=== PATIENT | female | born 1940 | race Caucasian/White ===

== ENCOUNTER 2016-09-20 17:45 | Inpatient (IN) | payer MEDICARE, BC ==
[2016-09-19 22:47] LABS: BASOPHILS 0.6 %; BASOPHILS ABSOLUTE 0.04 10/3/uL (0.0-0.16); EOSINOPHILS 5.9 %; HEMATOCRIT 45.7 % (36.0-48.0); HEMOGLOBIN 14.8 g/dL (12.0-16.0); IMMATURE GRANULOCYTES 0.1 %; IMMATURE GRANULOCYTES ABSOLUTE 0.01 10/3/uL (0.0-0.11); LYMPHOCYTES 21.2 %; LYMPHOCYTES ABSOLUTE 1.44 10/3/uL (0.67-4.30); MEAN CORPUS HGB CONC 32.4 g/dL (32.0-36.0); MEAN CORPUSCULAR HEMOGLOB 30.3 pg (26.0-34.0); MEAN CORPUSCULAR VOLUME 93.6 fL (80-100); MEAN PLATELET VOLUME 12.3 fL (9.2-13.0); MONOCYTES 8.5 %; MONOCYTES ABSOLUTE 0.58 10/3/uL (0.21-1.20); NEUTROPHILS 63.7 %; NEUTROPHILS ABSOLUTE 4.32 10/3/uL (2.02-8.40); PLATELET COUNT 214 10/3/uL (150-400); RBC DISTRIBUTION WIDTH 14.2 % (12.0-16.0); RED CELL COUNT 4.88 10/6/uL (4.0-5.6); WHITE BLOOD CELLS 6.8 10/3/uL (4.5-10.5)
[2016-09-19 22:48] LABS: MANUAL DIFF NO %
[2016-09-19 23:16] LABS: A/G RATIO 1.4 (0.7-1.9); ALBUMIN 4.3 G/DL (3.5-5.0); ALKALINE PHOSPHATASE 81 U/L (45-117); BUN (BLOOD UREA NITROGEN) 15 MG/DL (6-23); CHLORIDE, SERUM 103 MMOL/L (96-112); CO2 (CARBON DIOXIDE) 30 MMOL/L (24-34); CREATININE 0.64 MG/DL (0.55-1.02); FERRITIN 20 NG/ML (8-252); GFR AFRICAN AMERICAN 101 ML/MIN (>=60); GFR NON AFRICAN AMERICAN 87 ML/MIN (>=60); IRON, SERUM 73 MCG/DL (35-150); SGOT(AST) 21 U/L (5-40); SGPT(ALT) 25 U/L (5-65); SODIUM, SERUM 142 MMOL/L (135-148); TOTAL BILIRUBIN 0.6 MG/DL (0-1.2); TOTAL PROTEIN 7.3 G/DL (6.0-8.5)
[2016-09-19 23:18] LABS: GLUCOSE, SERUM 93 MG/DL (60-99); POTASSIUM, SERUM 4.7 MMOL/L (3.5-5.3)
--- NOTE | ~2016-09-20 | CN ---
Consultation Report [facility] [address] [place] [place]. [address] NAME: CAROL MILLS : 42 STATUS : ADM IN PAT#: [id number] AGE: 76 ADM/REG DATE : 09/21/16 MR#: [id number] REPORT SERV DATE: 09/21/16 DICTATED BY: REINIER PEREZ DATE: 09/21/16 REPORT STATUS : Draft TRANSCRIBED BY: MODL DATE: 09/21/16 CONSULTATION DATE OF CONSULTATION: HISTORY: This is a 76-year-old woman who I am asked to evaluate for hematochezia. This woman is known to me from prior evaluation. She has a history of significant anxiety and IBS with constipation. She has had colonoscopy in 2013 with a poor bowel prep and most recently in March of 2015 when she had upper and lower endoscopy for some hematochezia. Findings at that time included antral gastritis with bile reflux, internal hemorrhoids, pancolonic diverticulosis, fair bowel prep, technically difficult study and a little bit of blood on the left side of the colon. She has had some intermittent constipation for which she used probiotic. Yesterday, she passed some red blood and maroon-colored blood with clots several times in the morning. She phoned Dr. Alvarez who directed her to go to the emergency room. Her hemoglobin was normal 14.8 two days ago. She presented with hemoglobin 13.4, and it was 12.2 this morning. It remains normal at 12.8. She did not require transfusion. She was given a bowel prep orders by the hospitalist who admitted her but I was not notified that she was given a bowel prep. She said the first stool was somewhat bloody but after this, the stools cleared although she is still passing a little bit of brown stool. PAST MEDICAL HISTORY: 1. GERD. 2. Lactose intolerance. 3. Mild left-sided diverticular bleed in 2014. 4. Hypertension. 5. Asthma. 6. Migraine headaches. 7. Anxiety/panic attacks. PAST SURGICAL HISTORY: No abdominal surgery. MEDICATIONS: Albuterol inhaler, Xanax, Artificial Tears, biotin, Symbicort, vitamin D3, Estratest, Efudex, Flonase, Levsin as needed, acidophilus, lutein, Theragran, multivitamin, Prilosec 20 mg daily, Deltasone, Imitrex, Premarin, and Diovan. ALLERGIES: NO KNOWN DRUG ALLERGIES. FAMILY HISTORY: No GI malignancy. SOCIAL HISTORY: She is , and her is at bedside. She does not smoke. She occasionally drinks beer. Consultation Report [facility] [id number] [place]. [address] NAME: CAROL MILLS : 42 STATUS : ADM IN PAT#: [id number] AGE: 76 ADM/REG DATE : 09/21/16 MR#: [id number] REPORT SERV DATE: 09/21/16 DICTATED BY: REINIER PEREZ DATE: 09/21/16 REPORT STATUS : Draft TRANSCRIBED BY: ARLEEN DATE: 09/21/16 REVIEW OF SYSTEMS: Otherwise unremarkable for constitutional, endocrine, neurologic, psychiatric, ocular, ENT, pulmonary, cardiovascular, GI, , or rheumatologic symptoms except for as noted above. PHYSICAL EXAMINATION: GENERAL: She is a very anxious, elderly white female, resting comfortably in bed. VITAL SIGNS: Hemodynamically stable. SKIN: Warm and dry. NODES: No adenopathy. LUNGS: Clear. CARDIOVASCULAR: Regular rate and rhythm without audible gallop or murmur. ABDOMEN: Soft and nontender without mass or organomegaly. EXTREMITIES: No edema. LABORATORY DATA: Hemoglobin is normal at 12.8, white count 9.1, and platelet count normal. Sodium 144, potassium 3.3, BUN 10, creatinine 0.39. Liver enzymes normal. Noncontrast CT scan shows constipation and diverticulosis without any inflammatory changes. IMPRESSION: 1. Hematochezia. This very well could be outlet bleeding. If it is a colonic source such as diverticular bleed, it indeed is very mild and self-limited episode. 2. Irritable bowel syndrome with constipation. 3. Lactose intolerance. RECOMMENDATIONS: As the hospitalist has already given her bowel prep, we will go ahead with endoscopic examination. GIGI/ARLEEN Reinier Perez M.D. / [id number] CC: Nestor Murphy Jr, MD Richard Forrest Sowell, M.D.
--- NOTE | ~2016-09-20 | DS ---
Discharge Summary [facility] [address] [place]. [address] NAME: CAROL MILLS : 42 STATUS : DIS IN PAT#: [id number] AGE: 76 ADM/REG DATE : 09/21/16 MR#: [id number] REPORT SERV DATE: 09/24/16 DICTATED BY: SHIRLEY TAYLOR DATE: 09/22/16 REPORT STATUS : Draft TRANSCRIBED BY: MODL DATE: 09/22/16 ADMISSION DATE: 09/20/2016 DISCHARGE DATE: 09/22/2016 REASON FOR ADMISSION: Bright red blood per rectum. HISTORY OF PRESENT ILLNESS: Please refer Dr. Maciej Etienne's history and physical dated 09/21/2014 for complete details regarding the patient's admission. In brief, the patient was admitted to the Hospitalist Service for an acute lower GI bleed secondary to hematochezia. HOSPITAL COURSE: The patient had an uncomplicated hospital course. The patient was handed over care to Dr. Murphy who saw her in the CDU, and then, I assumed care of this patient on the day of discharge. The patient presented with a diverticular bleed. Dr. Perez who has done previous colonoscopies was consulted and performed a colonoscopy on 09/21/2016, which showed nonbleeding internal hemorrhoids. There was moderate diverticulosis in the sigmoid colon and in the descending colon. There was evidence of past bleeding from the diverticular opening. There was also mild diverticulosis in the transverse colon and in the ascending colon. There was no evidence of diverticular bleeding. The left-sided diverticular bleed has ceased. He also noted some irritable bowel syndrome and recommended a full-liquid diet to advance to soft in the morning. The patient's hemoglobin had remained stable throughout the hospitalization and did not require blood transfusion. She is tolerating foods and did not have any abdominal pain. Of note, she did have a bloody bowel movement on the day prior to discharge, but again, her hemoglobin has been stable and likely secondary to the residual bleeding. The patient will be discharged today in a stable condition. DISCHARGE DIAGNOSES: Hematochezia secondary to diverticular bleed, now resolved; migraine; reflux; asthma; severe anxiety; and hypertension. PROCEDURES: Include consultation with Dr. Perez, colonoscopy. DISCHARGE MEDICATIONS: Same as her home medications, no adjustments including Xanax 0.125 mg twice a day along with p.r.n. Efudex cream, Flonase, Prilosec 20 mg daily, valsartan 80 mg twice a day, albuterol, Symbicort 160/4.5 two puffs twice a day, estrogen daily, Levsin 0.125 mg p.r.n., vitamin D3, Imitrex 100 mg p.r.n. migraine, prednisone 20 mg p.r.n. anxiety attack, Premarin cream, lactobacillus, multivitamin, Lutein, Biotin, and Artificial Tears. FOLLOWUP: The patient will follow up with Dr. Alvarez as scheduled. I spent over 30 minutes in discharge planning and coordination of care on Mrs. Mills. JOSE MIGUEL/ARLEEN Discharge Summary [address] [address] NAME: CAROL MILLS : 42 STATUS : DIS IN PAT#: [id number] AGE: 76 ADM/REG DATE : 09/21/16 MR#: [id number] REPORT SERV DATE: 09/24/16 DICTATED BY: SHIRLEY TAYLOR DATE: 09/22/16 REPORT STATUS : Draft TRANSCRIBED BY: ARLEEN DATE: 09/22/16 Shirley Taylor MD / [id number]
--- NOTE | ~2016-09-20 | HP ---
History And Physical [facility] [address] [place]. [address] NAME: CAROL MILLS : 42 STATUS : ADM Mary PAT#: [id number] AGE: 76 ADM/REG DATE : 09/20/16 MR#: [id number] REPORT SERV DATE: 09/21/16 DICTATED BY: MACIEJ HEALY DATE: 09/20/16 REPORT STATUS : Draft TRANSCRIBED BY: MODL DATE: 09/20/16 DATE OF ADMISSION: 09/20/2016 CHIEF COMPLAINT: Bright red blood per rectum. HISTORY OF PRESENT ILLNESS: This is a 76-year-old female with a history of diverticulitis in the past with GI bleeding, hypertension, and anxiety disorder, presents to the emergency room at [facility] with the above-mentioned complaints. History is obtained from the patient, her who is at bedside, and reviewing data available on the [employer]ate[employer] system as well. According to the patient and her , she was fine this morning when she got up and during the course of the day, she had to go to the bathroom for a bowel movement. Unfortunately, she saw bright red blood and she says there was a lot. Since then, she had been going about every 15 minutes, sometimes even [id number]. By evening, she was exhausted, she felt a little weak and dizzy, called her primary care physician, Dr. Ho Alvarez, who asked her to proceed to the emergency room right away. In the emergency room, her hemoglobin and hematocrit levels were stable. CT scan of the abdomen and pelvis revealed several diverticula, but no diverticulitis. ER providers called Gastroenterology and spoke to Dr. Hernández, who advised admission under Hospitalist Service and they would see her in the morning. At the time of my evaluation, she denied any chest pain, palpitations, or orthopnea. She had no cough, hemoptysis, night sweats, or weight loss. She has not had any recent falls or loss of consciousness. No history of fevers or chills. Did not have any nausea or vomiting. She denied any abdominal cramping or pain. She denied any hematemesis or hematuria. No other history of recent travel or exposure. PAST MEDICAL HISTORY: Significant for history of diverticulitis with GI bleed in the past, history of gastroesophageal reflux disease, essential hypertension, asthma, migraine headaches, and anxiety disorder. SOCIAL HISTORY: She does not smoke, but drinks a beer on a daily basis before her dinner. She denied any recreational drug use. 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 FAMILY HISTORY: Noncontributory. MEDICATIONS AT HOME: Reviewed by me in the chart today and reordered by me. REVIEW OF SYSTEMS: As in history of present illness. All other systems were reviewed in detail and are quite unremarkable. PHYSICAL EXAMINATION: History And Physical [address] [address] NAME: CAROL MILLS : 42 STATUS : ADM Mary PAT#: [id number] AGE: 76 ADM/REG DATE : 09/20/16 MR#: [id number] REPORT SERV DATE: 09/21/16 DICTATED BY: MACIEJ HEALY DATE: 09/20/16 REPORT STATUS : Draft TRANSCRIBED BY: ARLEEN DATE: 09/20/16 GENERAL: This is a pleasant 76-year-old, not in any acute distress. HEENT: Her head is atraumatic and normocephalic. She is alert, awake, oriented to time, place, and person. Pupils are equal, reacting to light and accommodating. External ocular muscles are intact. Membranes are moist and pink. Sclerae are nonicteric. NECK: Supple with no jugular venous distention, lymphadenopathy, or thyromegaly. LUNGS: Clear to auscultation with no wheezes, rubs, or crackles. HEART: Sounds were regular with no murmurs, rubs, or gallops. ABDOMEN: Soft, nontender. Bowel sounds are present. EXTREMITIES: Showed no cyanosis, clubbing, or edema. NEUROLOGIC: Grossly intact. No focal sensory or motor deficits. Higher functions appeared intact. Gait was not examined. VITAL SIGNS: Her temperature was 98.7, pulse 89, respirations 19 a minute, blood pressure was 137/92, and oxygen saturations were 97%, breathing 2 L of oxygen via nasal cannula. LABORATORY DATA: Reviewed on the [employer] system showed normal CMP with a blood glucose of 138. CBC was essentially normal as well. White blood cell count was 6400, hemoglobin was 13.4, hematocrit 40, and platelet count was 193,000. Urinalysis was not performed today. Films of the CT scan of her abdomen and pelvis were reviewed by me on the PACS today and interpreted by me. Official radiology report was also reviewed. There are several diverticula seen, but no acute diverticulitis. There is constipation. Please see the report for details. A 12-lead EKG done in the emergency room was reviewed and interpreted by me. There is normal sinus rhythm with a rate of 73 per minute without any acute-ST elevations or depressions. IMPRESSION: 1. Acute lower gastrointestinal bleeding. 2. History of diverticulitis and gastrointestinal bleed. 3. Gastroesophageal reflux disease. 4. Uncontrolled hypertension. 5. Asthma. 6. Migraine headaches. 7. Anxiety disorder. PLAN: We will admit Ms. Mills to the Hospitalist Service with telemetry for a 24-hour observation period. We will keep her n.p.o. for now. Consult Dr. Reinier Perez, her rock worker, to see her in the morning. We will follow GI bleed order sets, follow hemoglobin and hematocrit, type and cross and transfuse if necessary. We will also place her on bronchodilators on an as-needed basis for her asthma. For blood pressure control, will be established with hydralazine intravenously on an as-needed basis and continuing her home medications. We will continue all other medications and treatments at this time. Start her on bowel prep as her colon shows a lot of retained feces. We will also place her on SCDs for DVT prophylaxis while here. Further recommendations will follow after Dr. Perez has had a chance to see her in the morning. I have discussed the above plan with the patient and her . Questions were answered and they are agreeable to the above recommendations. Hospitalist Service will be following her during her stay here. History And Physical [address] [address] NAME: CAROL MILLS : 42 STATUS : ADM Mary PAT#: [id number] AGE: 76 ADM/REG DATE : 09/20/16 MR#: [id number] REPORT SERV DATE: 09/21/16 DICTATED BY: MACIEJ HEALY DATE: 09/20/16 REPORT STATUS : Draft TRANSCRIBED BY: ARLEEN DATE: 09/20/16 /ARLEEN Maciej Healy M.D. / [id number] CC: Nestor Murphy Jr, MD Richard Forrest Sowell, M.D.
--- NOTE | ~2016-09-20 | EGD ---
EGD REPORT [facility] [address] [place]. [address] NAME: CAROL MILLS : 42 STATUS : ADM Mary PAT#: [id number] AGE: 76 ADM/REG DATE : 09/20/16 MR#: [id number] REPORT SERV DATE: 09/21/16 DICTATED BY: ANNIE FINK DATE: 09/21/16 REPORT STATUS : Draft TRANSCRIBED BY: [facility] DATE: 09/21/16 Endoscopy Center Patient Name: Carol Mills Date of : 1940 Attending MD: ANNIE FINK MD Procedure Date No Time: 09/21/2016 Procedure: Colonoscopy Indications: Hematochezia Referring MD: ROSA MARIA LAYTON MD Medicines: Propofol per Anesthesia Complications: No immediate complications. Estimated blood loss: None. Procedure: Pre-Anesthesia Assessment: - After reviewing the risks and benefits, the patient was deemed in satisfactory condition to undergo the procedure. - Prior to the procedure, a History and Physical was performed, and patient medications and allergies were reviewed. The patient's tolerance of previous anesthesia was also reviewed. The risks and benefits of the procedure and the sedation options and risks were discussed with the patient. All questions were answered, and informed consent was obtained. Prior Anticoagulants: The patient has taken no previous anticoagulant or antiplatelet agents. ASA Grade Assessment: II - A patient with mild systemic disease. After reviewing the risks and benefits, the patient was deemed in satisfactory condition to undergo the procedure. After I obtained informed consent, the scope was passed under direct vision. Throughout the procedure, the patient's blood pressure, pulse, and oxygen saturations were monitored continuously. The PCF [id number] was introduced through the anus and advanced to the cecum, identified by appendiceal orifice and ileocecal valve. The colonoscopy was somewhat difficult due to restricted mobility of the colon, significant looping and a tortuous colon. Successful completion of the procedure was aided by straightening and shortening the scope to obtain bowel loop reduction. The ileocecal valve and appendiceal orifice were photographed. The patient tolerated the procedure well. The quality of the bowel preparation was fair. The bowel preparation used was polyethylene glycol (PEG). Scope withdrawal time was greater than 8 minutes. Findings: EGD REPORT [facility] [id number] [place]. [address] NAME: CAROL MILLS : 42 STATUS : ADM Mary PAT#: [id number] AGE: 76 ADM/REG DATE : 09/20/16 MR#: [id number] REPORT SERV DATE: 09/21/16 DICTATED BY: ANNIE FINK DATE: 09/21/16 REPORT STATUS : Draft TRANSCRIBED BY: [facility] DATE: 09/21/16 The perianal and digital rectal examinations were normal. Pertinent negatives include normal sphincter tone. Non-bleeding internal hemorrhoids were found during retroflexion and were medium-sized and Grade I (internal hemorrhoids that do not prolapse). Multiple small-mouthed diverticula were found in the sigmoid colon and in the descending colon. There was evidence of past bleeding from the diverticular opening. A few small-mouthed diverticula were found in the transverse colon and in the ascending colon. There was no evidence of diverticular bleeding. The exam was otherwise without abnormality. Impression: - Non-bleeding internal hemorrhoids. - Moderate diverticulosis in the sigmoid colon and in the descending colon. There was evidence of past bleeding from the diverticular opening. - Mild diverticulosis in the transverse colon and in the ascending colon. There was no evidence of diverticular bleeding. - The examination was otherwise normal. - Left-sided diverticular bleed which has ceased. - IBS-C. - Anxiety. Recommendation: - [facility]. - Full liquid diet today then advance to soft food in AM if stable. - Monitor hemoglobin. - If evidence of recurrent hemodynamically significant bleeding, would proceed with therapeutic angiographic embolization. Procedure Code(s): --- Professional --- 18715, Colonoscopy, flexible, proximal to splenic flexure; diagnostic, with or without collection of specimen(s) by brushing or washing, with or without colon decompression (separate procedure) Diagnosis Code(s): --- Professional --- K64.0, First degree hemorrhoids K57.31, Diverticulosis of large intestine without perforation or abscess with bleeding K92.1, Melena CPT copyright 2013 [employer]. All rights reserved. EGD REPORT [facility] [address] [address] NAME: CAROL MILLS : 42 STATUS : ADM Mary PAT#: [id number] AGE: 76 ADM/REG DATE : 09/20/16 MR#: [id number] REPORT SERV DATE: 09/21/16 DICTATED BY: ANNIE FINK. DATE: 09/21/16 REPORT STATUS : Draft TRANSCRIBED BY: [employer] DATE: 09/21/16 The codes documented in this report are preliminary and upon cream buyer review may be revised to meet current compliance requirements. ANNIE FINK MD 09/21/2016 4:14 PM This report has been signed electronically. Number of Addenda: 0 Note Initiated On: 09/21/2016 3:43 PM Scope Withdrawal Time 0 hours 8 minutes 12 seconds [id number] [id number]
[2016-09-20 13:31] LABS: BASOPHILS 0.6 %; BASOPHILS ABSOLUTE 0.04 10/3/uL (0.0-0.16); EOSINOPHILS 6.6 %; EOSINOPHILS ABSOLUTE 0.42 10/3/uL (0.0-0.53); ER CBC TAT 0 Hrs 05 Mins; HEMOGLOBIN 13.4 g/dL (12.0-16.0); LYMPHOCYTES 19.7 %; LYMPHOCYTES ABSOLUTE 1.26 10/3/uL (0.67-4.30); MEAN CORPUS HGB CONC 33.5 g/dL (32.0-36.0); MEAN CORPUSCULAR HEMOGLOB 31.1 pg (26.0-34.0); MEAN CORPUSCULAR VOLUME 92.8 fL (80-100); MEAN PLATELET VOLUME 11.5 fL (9.2-13.0); MONOCYTES 7.8 %; NEUTROPHILS 65.3 %; NEUTROPHILS ABSOLUTE 4.17 10/3/uL (2.02-8.40); PLATELET COUNT 193 10/3/uL (150-400); RBC DISTRIBUTION WIDTH 13.7 % (12.0-16.0); RED CELL COUNT 4.31 10/6/uL (4.0-5.6); WHITE BLOOD CELLS 6.4 10/3/uL (4.5-10.5)
[2016-09-20 13:32] LABS: MANUAL DIFF NO %
[2016-09-20 13:43] LABS: INTERNATIONAL NORMAL RATI 1.1 UNITS (-); PARTIAL THROMBO TIME 29.5 SEC (22.5-37.2); PROTIME (NOT ORD) 13.8 SEC (12.0-14.5)
[2016-09-20 13:51] LABS: A/G RATIO 1.1 (0.7-1.9); ALBUMIN 3.6 G/DL (3.5-5.0); ALKALINE PHOSPHATASE 70 U/L (45-117); BUN (BLOOD UREA NITROGEN) 15 MG/DL (6-23); CALCIUM, SERUM 8.6 MG/DL (8.5-10.4); CHLORIDE, SERUM 105 MMOL/L (96-112); CO2 (CARBON DIOXIDE) 26 MMOL/L (24-34); CREATININE 0.61 MG/DL (0.55-1.02); GFR AFRICAN AMERICAN 103 ML/MIN (>=60); GFR NON AFRICAN AMERICAN 89 ML/MIN (>=60); GLOBULIN 3.2 G/DL (2.5-4.1); POTASSIUM, SERUM 3.8 MMOL/L (3.5-5.3); SGOT(AST) 19 U/L (5-40); SGPT(ALT) 25 U/L (5-65); SODIUM, SERUM 140 MMOL/L (135-148); TOTAL BILIRUBIN 0.7 MG/DL (0-1.2); TOTAL PROTEIN 6.8 G/DL (6.0-8.5)
[2016-09-20 13:52] LABS: GLUCOSE, SERUM 138 MG/DL (60-99)
[~2016-09-20 17:45] MED LIST: ACIDOPHILU1 PO; ALBUTEROL INH INH; ALEVE220 MG PO; BIOTIN 1000 MG PO; CENTRUM SILVER PO; CLARITD24H PO; DIOV80 PO; ESTRATESHS PO; FISH-EPA1000 MG PO; FLAXSEED OIL1000 MG PO; FLONASE NAS; IMITREX100 MG PO; LEVSINTAB PO; LUTEIN 6 MG PO; LUTEIN1 CAP OR; MULTIVITAMI1 PO; PREMARIN CREAM; PRILO PO; PROAIR HFA INH; PVC V; SYMBICORT 160/41 INH INH; SYMBICORT 80/4.1 INH INH; TYLENOL 8 HR650 MG PO; VITAMIN D31000 UNIT PO; X25 PO; [UNRECOGNIZED DRUG - OTHER] OR
[2016-09-20] MEDS ORDERED: X25 PO ×2 (18:28→18:38)
[2016-09-20] MEDS ORDERED: ESTRATESHS PO (18:28)
[2016-09-20] MEDS ORDERED: DIOV80 PO (18:28)
[2016-09-20] MEDS ORDERED: PRILO PO (18:29)
[2016-09-20] MEDS ORDERED: FLONASE NAS (18:31)
[2016-09-20] MEDS ORDERED: IMITREX100 MG PO (18:31)
[2016-09-20] MEDS ORDERED: VITAMIN D31000 UNIT PO (18:31)
[2016-09-20] MEDS ORDERED: LEVSINTAB PO (18:31)
[2016-09-20] MEDS ORDERED: SYMBICORT 160/41 INH INH (18:31)
[2016-09-20] MEDS ORDERED: VENTOLIN HFA INH (18:31)
[2016-09-20] MEDS ORDERED: P20 PO (18:32)
[2016-09-20] MEDS ORDERED: ACIDOPHILU2 PO (18:34)
[2016-09-20] MEDS ORDERED: PREMARIN CREAM V (18:34)
[2016-09-20] MEDS ORDERED: LUTEIN PO (18:34)
[2016-09-20] MEDS ORDERED: THERGRANM PO (18:34)
[2016-09-20] MEDS ORDERED: BIOTIN5 MG PO (18:35)
[2016-09-20] MEDS ORDERED: EFUDEX CREAM 5%40 GM TOP (18:35)
[2016-09-20] MEDS ORDERED: TEARS PLUS OPH (18:36)
[2016-09-20 22:05] LABS: HEMOGLOBIN 12.1 g/dL (12.0-16.0)
[2016-09-20 22:06] LABS: HEMATOCRIT 35.6 % (36.0-48.0)
[2016-09-21 03:44] LABS: BASOPHILS 0.4 %; BASOPHILS ABSOLUTE 0.04 10/3/uL (0.0-0.16); EOSINOPHILS 0.8 %; EOSINOPHILS ABSOLUTE 0.07 10/3/uL (0.0-0.53); HEMATOCRIT 37.2 % (36.0-48.0); HEMOGLOBIN 12.2 g/dL (12.0-16.0); IMMATURE GRANULOCYTES 0.1 %; IMMATURE GRANULOCYTES ABSOLUTE 0.01 10/3/uL (0.0-0.11); LYMPHOCYTES 11.6 %; LYMPHOCYTES ABSOLUTE 1.05 10/3/uL (0.67-4.30); MEAN CORPUS HGB CONC 32.8 g/dL (32.0-36.0); MEAN CORPUSCULAR HEMOGLOB 29.8 pg (26.0-34.0); MEAN PLATELET VOLUME 11.3 fL (9.2-13.0); MONOCYTES 5.2 %; MONOCYTES ABSOLUTE 0.47 10/3/uL (0.21-1.20); NEUTROPHILS 81.9 %; NEUTROPHILS ABSOLUTE 7.45 10/3/uL (2.02-8.40); PLATELET COUNT 167 10/3/uL (150-400); RBC DISTRIBUTION WIDTH 13.9 % (12.0-16.0); RED CELL COUNT 4.09 10/6/uL (4.0-5.6)
[2016-09-21 03:46] LABS: WHITE BLOOD CELLS 9.1 10/3/uL (4.5-10.5)
[2016-09-21 03:47] LABS: MANUAL DIFF NO %
[2016-09-21 04:03] LABS: CHLORIDE, SERUM 106 MMOL/L (96-112); CO2 (CARBON DIOXIDE) 23 MMOL/L (24-34); CREATININE 0.39 MG/DL (0.55-1.02); GFR AFRICAN AMERICAN 119 ML/MIN (>=60); GFR NON AFRICAN AMERICAN 103 ML/MIN (>=60); GLUCOSE, SERUM 113 MG/DL (60-99); POTASSIUM, SERUM 3.3 MMOL/L (3.5-5.3); SODIUM, SERUM 144 MMOL/L (135-148)
[2016-09-21 04:04] LABS: BUN (BLOOD UREA NITROGEN) 10 MG/DL (6-23); PHOSPHORUS, SERUM 1.9 MG/DL (2.5-4.5)
[2016-09-21 09:59] LABS: HEMATOCRIT 37.5 % (36.0-48.0); HEMOGLOBIN 12.8 g/dL (12.0-16.0)
[2016-09-21 10:04] LABS: ANA TITER <1:40 TITER
[2016-09-21 19:50] LABS: ZINC 76 ug/dL (60-120)
[2016-09-21 21:08] LABS: HEMATOCRIT 38.9 % (36.0-48.0); HEMOGLOBIN 12.8 g/dL (12.0-16.0)
[2016-09-21 22:46] LABS: THYROGLOBULIN AUTO ANTIBODY <0.9 IU/mL (0.0-4.0); THYROID PEROXIDASE AUTO AB 1.4 IU/mL (0.0-9.0)
[2016-09-22 04:30] LABS: DHEA-SO4 <15 ug/dL (8-75)
[2016-09-22 05:58] LABS: BASOPHILS 0.5 %; BASOPHILS ABSOLUTE 0.03 10/3/uL (0.0-0.16); EOSINOPHILS ABSOLUTE 0.25 10/3/uL (0.0-0.53); HEMATOCRIT 39.4 % (36.0-48.0); IMMATURE GRANULOCYTES 0.2 %; IMMATURE GRANULOCYTES ABSOLUTE 0.01 10/3/uL (0.0-0.11); LYMPHOCYTES ABSOLUTE 1.99 10/3/uL (0.67-4.30); MEAN CORPUSCULAR HEMOGLOB 30.8 pg (26.0-34.0); MEAN CORPUSCULAR VOLUME 93.4 fL (80-100); MEAN PLATELET VOLUME 11.9 fL (9.2-13.0); MONOCYTES 8.8 %; MONOCYTES ABSOLUTE 0.55 10/3/uL (0.21-1.20); NEUTROPHILS 54.5 %; NEUTROPHILS ABSOLUTE 3.39 10/3/uL (2.02-8.40); PLATELET COUNT 172 10/3/uL (150-400); RBC DISTRIBUTION WIDTH 14.1 % (12.0-16.0); RED CELL COUNT 4.22 10/6/uL (4.0-5.6); WHITE BLOOD CELLS 6.2 10/3/uL (4.5-10.5)
[2016-09-22 05:59] LABS: CALCIUM, SERUM 8.7 MG/DL (8.5-10.4); CHLORIDE, SERUM 111 MMOL/L (96-112); CO2 (CARBON DIOXIDE) 22 MMOL/L (24-34); CREATININE 0.61 MG/DL (0.55-1.02); GFR AFRICAN AMERICAN 103 ML/MIN (>=60); GFR NON AFRICAN AMERICAN 89 ML/MIN (>=60); GLUCOSE, SERUM 94 MG/DL (60-99); POTASSIUM, SERUM 3.7 MMOL/L (3.5-5.3); SODIUM, SERUM 145 MMOL/L (135-148)
[2016-09-22 06:01] LABS: MANUAL DIFF NO %
[2016-09-22 06:04] LABS: BUN (BLOOD UREA NITROGEN) 6 MG/DL (6-23); PHOSPHORUS, SERUM 2.8 MG/DL (2.5-4.5)
[2016-09-22 07:25] LABS: HEMATOCRIT 37.1 % (36.0-48.0); HEMOGLOBIN 12.3 g/dL (12.0-16.0)
[2016-09-25 12:37] LABS: VITAMIN A 0.61 mg/L (0.30-1.20)
== END 2016-09-22 12:55 | disposition home or self-care (01) | DRG 379 ==
LOC: ER 17:45 → CDU1 20:04
PROVIDERS: Dermatology; Emergency Medicine; Internal Medicine; Internal Medicine Gastroenterology; Internal Medicine Pulmonary Disease
PROC: 0DJD8ZZ Inspection of Lower Intestinal Tract, Via Natural or Artificial Opening Endoscopic (ICD-10-PCS; principal; 2016-09-21 15:48)
DX: K57.31 Diverticulosis of large intestine without perforation or abscess with bleeding (principal); I10 Essential (primary) hypertension; K64.8 Other hemorrhoids; K21.9 Gastro-esophageal reflux disease without esophagitis; J45.909 Unspecified asthma, uncomplicated; K58.1 Irritable bowel syndrome with constipation; E73.9 Lactose intolerance, unspecified; G43.909 Migraine, unspecified, not intractable, without status migrainosus; F41.0 Panic disorder [episodic paroxysmal anxiety]
CPT/HCPCS: 36415; 74176; 80048; 80053; 82306; 82627; 82728; 83540; 83735; 84100; 84132; 84403; 84443; 84590; 84630; 85014; 85018; 85025; 85610; 85730; 86039; 86376; 86800; 86850; 86900; 86901; 93005; 99285; A9270-GY; G0206; J0360; J0456; J2405